=== PATIENT | female | born 1950 | race Caucasian/White ===

== ENCOUNTER 2022-08-08 08:52 | Day surgery (SDC) | payer MEDICARE ==
[~2022-08-08] VITALS: Ht 160 cm; Wt 66.2 kg
[~2022-08-08 08:52] MED LIST: ACETAMINOP160 MG/5 M PO; LEVOTHYROXIN88 MC1 PO; MAGNESIUM 250 M1 TAB PO; MELATONIN PO; PROBIOTI2 PO
[2022-08-08 11:18] VITALS: BP 110/73
== END 2022-08-08 11:25 | disposition home or self-care (01) ==
LOC: ENDO 08:52 → ORM 11:40
PROVIDERS: ATTEND Internal Medicine Gastroenterology
PROC: 0DBP8ZX Excision of Rectum, Via Natural or Artificial Opening Endoscopic, Diagnostic (ICD-10-PCS; principal; 2022-08-08)
PROC: 0DBN8ZX Excision of Sigmoid Colon, Via Natural or Artificial Opening Endoscopic, Diagnostic (ICD-10-PCS; 2022-08-08)
DX: Z12.11 Encounter for screening for malignant neoplasm of colon (principal); K63.5 Polyp of colon; K62.1 Rectal polyp; K64.8 Other hemorrhoids; K59.09 Other constipation; Z86.010 Personal history of colon polyps